=== PATIENT | female | born 1965 | race Caucasian/White ===

== ENCOUNTER 2021-06-26 14:34 | Emergency (ER) | payer BC ==
[2021-06-26 15:03] VITALS: BP 170/97; PULSE 79
--- NOTE | 2021-06-26 16:22 | EDM.PDOC ---
ED HPI GENERAL MEDICAL PROBLEM - General Chief Complaint: Lower Extremity Injury/Pain Stated Complaint: COVID+, Time Seen by Provider: 06/26/21 14:49 Source of Information: Reports: Patient History Limitations: Reports: No Limitations - History of Present Illness INITIAL COMMENTS - FREE TEXT/NARRATIVE: Tricia is a 55-year-old female presenting to the ED for evaluation of bilateral leg sensations like bubbles are going up the back of her calves. Symptoms started earlier today. Patient is positive for COVID-19 and today is day 10. She was participating in a tour of elderly people on a bus down through [place] last week and several people on the bus were coughing. She is reported that 7 of the people on the bus were Covid positive since the trip. She started developing symptoms last Monday (10 days ago.) She is vaccinated receiving the Moderna vaccine in September and October 2020. He has not had any real significant shortness of breath or chest pain. She does supplements because of low minerals. - Related Data Allergies Allergy/AdvReac Type Severity Reaction Status Date / Time Dairy Products Allergy Diarrhea Verified 06/26/21 15:03 gluten Allergy Joint Pain Verified 06/26/21 15:03 latex Allergy Rash Verified 06/26/21 15:03 Sulfa (Sulfonamide Allergy Rash Verified 06/26/21 15:03 Antibiotics) Home Meds: Home Meds Cyclobenzaprine HCl 5 mg PO TID PRN 04/17/13 [History] Levonorgestrel-Ethin Estradiol [Falmina] 1 tab PO DAILY 04/17/13 [History] Potassium Chloride 1 tab PO DAILY PRN 04/17/13 [History] Triamterene/Hydrochlorothiazid [Triamterene-HCTZ 37.5-25 MG] 1 tab PO DAILY 04/17/13 [History] L.acidoph,Paracasei, B.lactis [Probiotic] 1 each PO DAILY 06/26/21 [History] lisinopriL [Lisinopril] 5 mg PO DAILY 06/26/21 [History] valACYclovir HCl [Valacyclovir] 1,000 mg PO ASDIRECTED 06/26/21 [History] Past Medical History HEENT History: Reports: Allergic Rhinitis, Other (See Below) Other HEENT History: deviated septum Cardiovascular History: Reports: Hypertension Gastrointestinal History: Reports: GERD, Irritable Bowel Syndrome, Other (See Below) Other Gastrointestinal History: bloating Musculoskeletal History: Reports: Fibromyalgia Neurological History: Reports: Migraines - Infectious Disease History Infectious Disease History: Reports: Chicken Pox, Herpes, Novel Coronavirus Social & Family History - Tobacco Use Tobacco Use Status *Q: Never Tobacco User Review of Systems - Review of Systems Review Of Systems: See Below Constitutional: Reports: Weakness (Generalized weakness due to the Covid) Respiratory: Reports: Shortness of Breath (Mild shortness of breath), Cough. Denies: Wheezing, Sputum Cardiovascular: Denies: Chest Pain GI/Abdominal: Reports: No Symptoms Genitourinary: Reports: No Symptoms Musculoskeletal: Reports: Leg Pain (Bilateral lower leg pain with unusual sensation like intermittent cramping in the calves patient states it feels like bubbles are coming up her legs from behind the calves) Skin: Reports: No Symptoms Neurological: Reports: No Symptoms Psychiatric: Reports: No Symptoms ED EXAM, GENERAL - Physical Exam Exam: See Below Exam Limited By: No Limitations General Appearance: Alert, No Apparent Distress Eye Exam: Bilateral Eye: EOMI, PERRL Neck: Normal Inspection, Supple. No: Lymphadenopathy (R), Lymphadenopathy (L) Respiratory/Chest: No Respiratory Distress, Lungs Clear, Normal Breath Sounds. No: Rales, Rhonchi, Wheezing Cardiovascular: Normal Peripheral Pulses, Regular Rate, Rhythm, No Murmur Peripheral Pulses: 2+: Radial (R), Posterior Tibial (L), Posterior Tibial (R) Extremities: Normal Inspection, Normal Range of Motion, Normal Capillary Refill, Other (There are no cords, negative Homans' sign, no redness or increased temperature, no tenderness to palpation.). No: Damián's Sign Neurological: Alert, Oriented, Normal Cognition, No Motor/Sensory Deficits Psychiatric: Normal Affect, Normal Mood Skin Exam: Warm, Dry, Intact, Normal Color Course - Vital Signs Last Recorded V/S: Last Vital Signs Temp 36.8 C 06/26/21 14:59 Pulse 79 06/26/21 14:59 Resp 18 06/26/21 14:59 BP 170/97 H 06/26/21 14:59 Pulse Ox 99 06/26/21 14:59 - Orders/Labs/Meds Labs: Laboratory Tests 06/26/21 06/26/21 06/26/21 Range/Units 15:07 15:07 15:07 WBC 4.9 (4.5-11.0) K/uL RBC 4.72 (3.30-5.50) M/uL Hgb 13.8 (12.0-15.0) g/dL Hct 39.0 (36.0-48.0) % MCV 83 (80-98) fL MCH 29 (27-31) pg MCHC 35 (32-36) % Plt Count 286 (150-400) K/uL Neut % (Auto) 55.0 (36-66) % Lymph % (Auto) 30.0 (24-44) % [place] % (Auto) 13.8 H (2-6) % Eos % (Auto) 1.0 L (2-4) % Baso % (Auto) 0.2 (0-1) % D-Dimer, Quantitative 1706.65 H (0.0-500.0) ng/mL Sodium 124 L (140-148) mmol/L Potassium 3.3 L (3.6-5.2) mmol/L Chloride 83 L (100-108) mmol/L Carbon Dioxide 29 (21-32) mmol/L Anion Gap 15.3 H (5.0-14.0) mmol/L BUN 6 L (7-18) mg/dL Creatinine 0.7 (0.6-1.0) mg/dL Est Cr Clr Drug Dosing 73.51 mL/min Estimated GFR (MDRD) > 60 (>60) Glucose 139 H (74-106) mg/dL Lactic Acid (0.4-2.0) mmol/L Calcium 8.8 (8.5-10.1) mg/dL Ferritin 351 (8-388) ng/ml Lactate Dehydrogenase 183 (82-234) U/L C-Reactive Protein 0.87 H (0.0-0.3) mg/dL Procalcitonin ng/mL 06/26/21 06/26/21 Range/Units 15:07 15:07 WBC (4.5-11.0) K/uL RBC (3.30-5.50) M/uL Hgb (12.0-15.0) g/dL Hct (36.0-48.0) % MCV (80-98) fL MCH (27-31) pg MCHC (32-36) % Plt Count (150-400) K/uL Neut % (Auto) (36-66) % Lymph % (Auto) (24-44) % [place] % (Auto) (2-6) % Eos % (Auto) (2-4) % Baso % (Auto) (0-1) % D-Dimer, Quantitative (0.0-500.0) ng/mL Sodium (140-148) mmol/L Potassium (3.6-5.2) mmol/L Chloride (100-108) mmol/L Carbon Dioxide (21-32) mmol/L Anion Gap (5.0-14.0) mmol/L BUN (7-18) mg/dL Creatinine (0.6-1.0) mg/dL Est Cr Clr Drug Dosing mL/min Estimated GFR (MDRD) (>60) Glucose (74-106) mg/dL Lactic Acid 1.6 (0.4-2.0) mmol/L Calcium (8.5-10.1) mg/dL Ferritin (8-388) ng/ml Lactate Dehydrogenase (82-234) U/L C-Reactive Protein (0.0-0.3) mg/dL Procalcitonin < 0.05 ng/mL - Re-Assessments/Exams Free Text/Narrative Re-Assessment/Exam: 06/26/21 16:20 I reviewed the patient's labs showing a normal CBC with a leukocyte count of 4.9, hemoglobin of 13.8, and platelet count of 286,000. Her basic metabolic profile is significant for sodium of 124, potassium 3.3, chloride of 83, bicarbonate of 29, BUN of 6 with a creatinine of 0.7 and a glucose of 139. GFR is calculated greater than 60. This is likely due to free water excess but the patient does have issues with hypokalemia in the past. Her Covid markers are significant for a D-dimer at 1706, CRP of 0.87, pro calcitonin less than 0.05, lactate of 1.6, ferritin of 351 and LDH of 183. The patient is not experiencing any significant shortness of breath or chest pain so I do not believe we should pursue a CT angio at this time but we did talk about correction of the hyponatremia and hypokalemia. The symptoms she presents with her more likely due to the hyponatremia so we should free up the saltshaker for a while. At this time, the patient is in agreement with going home. Indications to return to ED were discussed and all questions were answered prior to discharge. Departure - Departure Time of Disposition: 16:18 Disposition: Home, Self-Care 01 Clinical Impression: COVID-19, Hyponatremia, Hypokalemia - Discharge Information Referrals: PCP,None [Primary Care Provider] - Forms: ED Department Discharge Sepsis Event Note (ED) - Focused Exam Vital Signs: Vital Signs Temp Pulse Resp BP Pulse Ox 06/26/21 14:59 36.8 C 79 18 170/97 H 99 - Problem List & Annotations (1) COVID-19 SNOMED Code(s): 854625769 Code(s): U07.1 - COVID-19 Status: Acute Priority: Medium Current Visit: Yes (2) Hyponatremia SNOMED Code(s): 60815921 Code(s): E87.1 - HYPO-OSMOLALITY AND HYPONATREMIA Status: Acute Priority: Medium Current Visit: Yes (3) Hypokalemia SNOMED Code(s): 92777612 Code(s): E87.6 - HYPOKALEMIA Status: Acute Priority: Medium Current Visit: Yes - Problem List Review Problem List Initiated/Reviewed/Updated: Yes
== END 2021-06-26 16:35 | disposition home or self-care (01) ==
LOC: JP.ED 14:34
DX: U07.1 COVID-19 (principal); E87.6 Hypokalemia; E87.1 Hypo-osmolality and hyponatremia; I10 Essential (primary) hypertension; K21.9 Gastro-esophageal reflux disease without esophagitis; Z79.899 Other long term (current) drug therapy; Z91.011 Allergy to milk products; Z91.040 Latex allergy status; Z88.2 Allergy status to sulfonamides; Z91.018 Allergy to other foods
CPT/HCPCS: 36415; 80048; 82728; 83605; 83615; 84145; 85025; 85379; 86140; 99283